=== PATIENT | male | born 1955 | race African-American/Black ===

== ENCOUNTER → 2017-03-20 | Outpatient (CLI) | payer OTHER ==
--- NOTE | 2017-03-20 11:38 | PCVCIMAG ---
APPROVED REPORT Exam: Stress Echocardiogram Indication: Dyspnea, Palpitations, Chest discomfort Patient Location: Echo lab Stress Nurse: Anita Marc RN Status: routine Ht: 5 ft 11 in HR: 73 bpm BP: 124/96 mmHg Rhythm: NSR Procedure The patient underwent an Exercise Stress Test using the Rivas Protocol. Blood pressure, heart rate, and EKG were monitored. An Echocardiogram was performed by sleep lab technician in four stages in quad fashion. At peak stress, four selected images were obtained and placed side by side with resting images for comparison. Stress Test Details Stress Test: Exercise stress testing was performed using a Rivas protocol. HR Resting HR: 73 bpmMax Heart Rate (APMHR): 160 bpm Max HR Achieved: 160 bpmTarget HR (85% APMHR): 136 bpm % of APMHR: 100 Recovery HR: 97 bpm HR response to stress: Normal HR response to stress BP Resting BP: 124/96 mmHg Max BP: 194/86 mmHg Recovery BP: 164/88 mmHg ECG Resting ECG: Sinus Rhythm Stress ECG: Sinus Rhythm Arrhythmia: occasional Isolated PVCs with one couplet PVC Recovery ECG: Sinus Rhythm Recovery Arrhythmia: None Clinical Reason for Termination: Maximal effort Stress Symptoms: Dyspnea Exercise duration: 12 min 32 sec Highest Stage Achieved: Stage 5: 5.0 mph at 18% grade. Exercise capacity: 15.2 METs Overall Exercise Capacity for Age: Normal Pre-Stress Echo The resting Echocardiogram showed normal left ventricular contractility with an estimated Ejection Fraction of about >55%. Normal wall motion in all segments on baseline images. Post-Stress Echo The stress Echocardiogram showed normal left ventricular contractility with an estimated Ejection Fraction of about 65%. Normal augmentation of wall motion in all segments on post stress images. Clinical No clinical or ECG evidence for ischemia. Conclusion Clinical Response: Non-ischemic Exercise Capacity: Superior Stress ECG Response: Non-ischemic Stress Echo Images: Non-ischemic The left ventricle is normal in size and wall thickness in both the rest and stress images. Other Information Study Quality: Adequate <Conclusion> The left ventricle is normal in size and wall thickness in both the rest and stress images.
== END | disposition home or self-care (01) ==
LOC: PCVCIMAG 10:04
PROVIDERS: ATTEND Internal Medicine Cardiovascular Disease
DX: I49.3 Ventricular premature depolarization (principal); I10 Essential (primary) hypertension; E78.00 Pure hypercholesterolemia, unspecified
CPT/HCPCS: 93325; 93351